=== PATIENT | female | born 1940 | race Caucasian/White ===

== ENCOUNTER 2017-05-01 14:45 | Emergency (ER) | payer MEDICARE, OTHER ==
[2017-05-01 15:10] VITALS: BP 127/60
--- NOTE | 2017-05-01 15:52 | UC ---
Skin Complaint HPI - HPI Summary HPI Summary: Pt reports that she was changing her metal bird feeder and cut the dorsal aspect of mid right forearm 3-4 days ago. pt states that she is UTD with tetanus. pt has been putting antibiotic ointment and bandage on wound. Pt is requesting that small piece of skin be uncurled and flattened on to wound. 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: Associated Signs & Symptoms: Positive: Negative - Allergy/Home Medications Allergies/Adverse Reactions: Allergies Allergy/AdvReac Type Severity Reaction Status Date / Time No Known Allergies Allergy Verified 05/01/17 15:14 Home Medications: Home Medications Atorvastatin* [Lipitor*] 10 mg PO 1700 05/01/17 [History Confirmed 05/01/17] Calcium Carbonate-Vitamin D [Calcium 600+D] 1 tab PO DAILY 05/01/17 [History Confirmed 05/01/17] Denosumab(NF) [Prolia(NF)] 60 mg SUBCUT SEE INSTRUCTIONS 05/01/17 [History Confirmed 05/01/17] Flaxseed (Linseed) [Flaxseed Oil] 1,000 mg PO DAILY 05/01/17 [History Confirmed 05/01/17] Glatiramer Acetate [Copaxone] 40 mg SUBCUT SEE INSTRUCTIONS 05/01/17 [History Confirmed 05/01/17] Omeprazole CAP* [Prilosec CAP* 20 MG] 20 mg PO DAILY 05/01/17 [History Confirmed 05/01/17] Oxcarbazepine [Oxtellar Xr] 1,200 tab PO BEDTIME 05/01/17 [History Confirmed ] Review of Systems Constitutional: Negative Skin: Other - skin tear, rigth forearm Eyes: Negative ENT: Negative Respiratory: Negative Cardiovascular: Negative Gastrointestinal: Negative Genitourinary: Negative Motor: Negative Neurovascular: Negative Musculoskeletal: Negative Neurological: Negative Psychological: Negative Is Patient Immunocompromised?: No All Other Systems Reviewed And Are Negative: Yes PMH/Surg Hx/FS Hx/Imm Hx Previously Healthy: Yes - Surgical History Surgical History: Yes Surgery Procedure, Year, and Place: T&A. TUBAL LIGATION. LAPCHOLE. ORIF RT WRIST - Family History Known Family History: Positive: Cardiac Disease - Social History Occupation: Retired Lives: With Family Alcohol Use: None Substance Use Type: None Smoking Status (MU): Never Smoked Tobacco Have You Smoked in the Last Year: No Physical Exam Triage Information Reviewed: Yes Appearance: Well-Appearing Vital Signs: Initial Vital Signs Temp 98.0 F 05/01/17 15:00 Pulse 77 05/01/17 15:00 Resp 14 05/01/17 15:00 BP 127/60 05/01/17 15:00 Pulse Ox 98 05/01/17 15:00 Vital Signs Reviewed: Yes Eye Exam: Normal Neck exam: Normal Respiratory Exam: Other Respiratory: Positive: No respiratory distress Musculoskeletal Exam: Normal Neurological Exam: Normal Psychological Exam: Normal Skin Exam: Other - skin, tear, measuring 4 cm X 1.5 cm, well healing. Course/Dx - Differential Diagnoses - Skin Complaint Differential Diagnoses: Other - healing wound, skin tear - Diagnoses Provider Diagnoses: skin tear right forearm. healing wound right forearm Discharge - Discharge Plan Condition: Stable Disposition: HOME Patient Education Materials: Skin Tear (ED), Acute Wounds (ED) Referrals: Hair Castillo DO [Primary Care Provider] - If Needed
== END 2017-05-01 15:36 | disposition home or self-care (01) ==
LOC: UCCORT 14:45
DX: S51.811A Laceration without foreign body of right forearm, initial encounter (principal); W45.8XXA Other foreign body or object entering through skin, initial encounter; Y92.9 Unspecified place or not applicable
CPT/HCPCS: 99211; G0463

== ENCOUNTER 2018-05-20 19:28 | Emergency (ER) | payer MEDICARE, OTHER ==
--- NOTE | 2018-05-20 19:50 | UC ---
Hip/Pelvis Pain - HPI Summary HPI Summary: Per medical administrative technician "fell tonight, injury to left hip, non weight bearing. " -she had severe pain w/ the fall that made her feel like she was going to pass out. she was unable to get to the phone d/t severe pain and had to wait until her got home and found her. time was < 30 mins she reports. they called dtr Jacy (Admin for [facility]) and Son in law Tonio and they transported her here. pain was lateral hip and now medial left upper thigh. unable to bear weight. + Osteoprosis hx on prolia. -pain is well controlled now. sge declines needs for pain meds. pain is only with ambulation. -family transported her here. - History Of Current Complaint Chief Complaint: UCLowerExtremity Stated Complaint: PELVIS/HIP INJ Time Seen by Provider: 05/20/18 19:33 Pain Intensity: 2 - Allergies/Home Medications Allergies/Adverse Reactions: Allergies Allergy/AdvReac Type Severity Reaction Status Date / Time No Known Allergies Allergy Verified 05/20/18 19:39 PMH/Surg Hx/FS Hx/Imm Hx Previously Healthy: Yes Endocrine History: Other - osteoporosis Other Endocrine History: osteoporisis - Surgical History Surgical History: Yes Surgery Procedure, Year, and Place: T&A. TUBAL LIGATION. LAPCHOLE. ORIF RT WRIST - Family History Known Family History: Positive: Cardiac Disease - Social History Alcohol Use: None Substance Use Type: None Smoking Status (MU): Never Smoked Tobacco Have You Smoked in the Last Year: No Review of Systems Constitutional: Negative Skin: Negative Eyes: Negative ENT: Negative Respiratory: Negative Cardiovascular: Negative Gastrointestinal: Negative Genitourinary: Negative Motor: Negative Neurovascular: Negative Musculoskeletal: Other: - see above Neurological: Negative Psychological: Negative Is Patient Immunocompromised?: No All Other Systems Reviewed And Are Negative: Yes Physical Exam Triage Information Reviewed: Yes Appearance: Well-Appearing, No Pain Distress, Well-Nourished - sitting in rollating walker. Vital Signs: Initial Vital Signs Temp 97.6 F 05/20/18 19:33 Pulse 68 05/20/18 19:33 Resp 16 05/20/18 19:33 BP 153/55 05/20/18 19:33 Pulse Ox 99 05/20/18 19:33 ENT Exam: Normal Respiratory Exam: Normal Respiratory: Positive: Lungs clear Cardiovascular Exam: Normal Musculoskeletal: Positive: Other: - not allowing pt to attempt wt bearing here. not tender laterally currently. sitting comofrtabley in rollator walker. + 2 DR/ PT pulses on left Neurological Exam: Normal Psychological Exam: Normal Hip Injury Course/Dx - Course Course Of Treatment: Left hip & pelvis: non-displace frx of medial superior pubic ramus. suspected corresponding frx in inferior pubic ramus, but not seen. -pt is non-weight bearing. agrees to transport to [place] for further management as not safe to send home non- wt bearing. Family and pt are very agreeable. APAP given for pain control - Differential Dx/Diagnosis Differential Diagnosis/HQI/PQRI: Fracture, Sprain, Strain Provider Diagnoses: non displaced medial left superior pubic ramus - Physician Notification/Consults Discussed Patient Care With: Lisandro Bucio Discharge - Sign-Out/Discharge Documenting (check all that apply): Patient Departure All imaging exams completed and their final reports reviewed: Yes - Discharge Plan Condition: Good Disposition: TRANS HIGHER LVL OF CARE FAC Referrals: Hair Castillo DO [Primary Care Provider] - - Billing Disposition and Condition Condition: GOOD Disposition: Trans Higher Lvl of Care Fac
--- NOTE | 2018-05-20 21:01 | RAD ---
EXAM: XR Left Hip With Pelvis When Performed, 2 or 3 Views EXAM DATE/TIME: Exam ordered 05/20/2018 8:19 PM CLINICAL HISTORY: 77 years old, female; Injury or trauma; Fall; Initial encounter; Blunt trauma (contusions or hematomas); Left; Hip; Injury date: 05/20/18; Injury details: Pt tripped over her vacuum shrimp cleaner landing on her lt hip, pain in pelvic and lt hip medial apsect; Additional info: Severe left hip pain, S/P fall. Unable to bear wt TECHNIQUE: Two or three views of the left hip, with pelvis when performed. COMPARISON: No relevant prior studies available. FINDINGS: Bones/joints: Nondisplaced fracture of the medial left superior pubic ramus. Degenerative change in the lower lumbar spine. No dislocation. Soft tissues: Right inguinal surgical clips. IMPRESSION: 1. Essentially nondisplaced fracture of the medial left superior pubic ramus. A corresponding fracture in the inferior pubic ramus is suspected but not seen. 2. Right inguinal surgical clips. To contact [facility] with a general question: Operations Center - [phone] For direct physician to physician contact: Physician Hotline - [phone] [facility] ([facility] Facility ID #[id number])
[2018-05-20 21:24] VITALS: BP 144/95
[2018-05-20] MEDS: Acetaminophen TAB* 325 MG PO ONE (21:27)
== END 2018-05-20 21:44 | disposition short-term general hospital (02) ==
LOC: UCCORT 19:28
DX: S32.512A Fracture of superior rim of left pubis, initial encounter for closed fracture (principal); W19.XXXA Unspecified fall, initial encounter; Y92.009 Unspecified place in unspecified non-institutional (private) residence as the place of occurrence of the external cause
CPT/HCPCS: 99213; A9270-GY; G0463

== ENCOUNTER 2018-05-20 22:10 | Inpatient (IN) | payer MEDICARE, OTHER ==
[2018-05-20] MEDS ORDERED: Ibuprofen TAB* 400 MG PO ONE (23:26)
--- NOTE | 2018-05-20 23:39 | ED ---
Lower Extremity - HPI Summary HPI Summary: The patient is a 77 y/o F presenting to [facility] with a chief complaint of falling on her left hip tonight. She was walking in her living room when she had forgotten that she placed her vacuum there, and she tripped over it, causing her to fall onto her left side, causing swelling in the hip. She hit her left hip and shoulder, but did not hit her head or have any LOC. She was unable to get up so she crawled over to a chair, and her came home, who called their daughter to take the patient to urgent care. At urgent care, she had an XR taken, which showed that there was no fracture to the hip, but there was a fracture in the anterior of the pelvic bone, as well and one in the posterior, as read by Dr. Welch. She had Tylenol at urgent care, which she states has relieved her pain completely, while lying down. She is not able to bear weight on the left leg due to the pain in her pelvic area. She does not take any blood thinners. - History of Current Complaint Chief Complaint: EDHipPelvisInjury Stated Complaint: CC TRANSFER/PELVIS INJURY Time Seen by Provider: 05/20/18 22:49 Hx Obtained From: Patient Mechanism Of Injury: Fall From A Standing Position - tripped over vacuum Onset of Pain: Hours Onset/Duration: Still Present Severity Initially: Severe Severity Currently: Mild Pain Intensity: 0 Pain Scale Used: 0-10 Numeric Timing: Constant, Lasting Hours Location: Is Discrete @ - left hip/pelvis Character Of Pain: Aching Aggravating Factor(s): Standing, Ambulation, Weight Bearing Alleviating Factor(s): Rest Able to Bear Weight: No - pain with weight bearing - Allergies/Home Medications Allergies/Adverse Reactions: Allergies Allergy/AdvReac Type Severity Reaction Status Date / Time No Known Allergies Allergy Verified 05/20/18 19:39 Home Medications: Home Medications Vitamin D3 2,000 i.u. PO DAILY 05/20/18 [History Confirmed 05/20/18] PMH/Surg Hx/FS Hx/Imm Hx Endocrine/Hematology History: Denies: Hx Diabetes Cardiovascular History: Denies: Hx Hypertension, Hx Pacemaker/ICD Respiratory History: Denies: Hx Asthma History: Denies: Hx Renal Disease Sensory History: Denies: Hx Hearing Aid Psychiatric History: Denies: Hx Panic Disorder - Surgical History Surgery Procedure, Year, and Place: T&A. TUBAL LIGATION. LAPCHOLE. ORIF RT WRIST Infectious Disease History: No Infectious Disease History: Denies: Traveled Outside the [place] in Last 30 Days - Family History Known Family History: Positive: Cardiac Disease - Social History Alcohol Use: None Substance Use Type: Reports: None Smoking Status (MU): Never Smoked Tobacco Have You Smoked in the Last Year: No Review of Systems Positive: Other - pain and swelling in left hip Neurological: Other - NEGATIVE: LOC All Other Systems Reviewed And Are Negative: Yes Physical Exam - Summary Physical Exam Summary: Appearance: Well-appearing, Well-nourished, lying in bed comfortably Skin: Warm, dry, no obvious rash Eyes: sclera anicteric, no conjunctival pallor ENT: mucous membranes moist, pharynx appears normal Neck: Supple, nontender Respiratory: Clear to auscultation, no signs of respiratory distress Cardiovascular: Normal S1, S2. No murmurs. Normal distal pulses in tibial and radial bilaterally. Abdomen: Soft, nontender, normal active bowel sounds present Musculoskeletal: Normal, Strength/ROM intact Neurological: A&Ox3, awake and alert, mentation is normal, speech is fluent and appropriate Psychiatric: affect is normal, does not appear anxious or depressed Triage Information Reviewed: Yes Vital Signs On Initial Exam: Initial Vitals Pulse Pulse Ox 68 97 05/20/18 22:29 05/20/18 22:29 Vital Signs Reviewed: Yes Diagnostics - Vital Signs Vital Signs Temp Pulse Resp BP Pulse Ox 05/20/18 22:30 97.9 F 69 16 148/78 97 05/20/18 22:29 68 97 - Laboratory Result Diagrams: 05/21/18 00:04 05/21/18 00:04 Lab Statement: Any lab studies that have been ordered have been reviewed, and results considered in the medical decision making process. - EKG 00:59 Cardiac Rate: NL EKG Rhythm: Sinus Rhythm EKG Interpretation: P waves, QRS complex, and T waves and intervals nml. No ischemic changes. Lower Extremity Course/Dx - Diagnoses Provider Diagnoses: Pelvic fracture - Physician Notifications Discussed Care Of Patient With: Marquis Francis - Hospitalist Time Discussed With Above Provider: 00:30 Instructed by Provider To: Admit As Inpatient - Dr. Francis accepts the patient for further care and management of symptoms. Discharge - Sign-Out/Discharge Documenting (check all that apply): Patient Departure - Patient will be admitted to [facility] for further care. - Discharge Plan Condition: Fair Disposition: ADMITTED TO [facility] - Billing Disposition and Condition Condition: FAIR Disposition: Admitted to [facility] - Attestation Statements Document Initiated by Pepitoibkinjal: Yes Documenting Scribe: Netta Hernandez Provider For Whom Petros is Documenting (Include Credential): Dr. Lisandro Taylor MD Scribe Attestation: Netta Vega scribed for Dr. Lisandro Taylor MD on 05/21/18 at 0309. Scribe Documentation Reviewed: Yes Provider Attestation: The documentation as recorded by the Netta goodman accurately reflects the service I personally performed and the decisions made by me, Dr. Lisandro Taylor MD
[2018-05-20] MEDS ORDERED: oxyCODONE TAB* 5 MG TAB PO ONE (23:53)
[2018-05-21 00:17] LABS: ABS Basophils 0.1 10^3/ul (0-0.2); ABS Eosinophils 0 10^3/ul (0-0.6); ABS Lymphocytes 1.5 10^3/ul (1.0-4.8); ABS Monocytes 0.8 10^3/ul (0-0.8); ABS Nucleated RBC 0 10^3/ul; Eosinophil % 0.4 % (0-6); Hematocrit 36 % (35-47); Lymphocyte % 13.4 % (25-47); Mean Corpuscular HGB Conc 34 g/dl (31-36); Mean Corpuscular Hemoglobin 30 pg (27-31); Mean Corpuscular Volume 90 fL (80-97); Mean Platelet Volume 8.1 um3 (7.4-10.4); Nucleated Red Blood Cells % 0.1; Platelet Count 275 10^3/ul (150-450); Red Blood Count 3.95 10^6/ul (4.00-5.40); Red Cell Distribution Width 13 % (10.5-15); White Blood Count 11.5 10^3/ul (3.5-10.8)
[2018-05-21 04:09] LABS: Urine Appearance Clear; Urine Blood Negative (Negative); Urine Color Yellow; Urine Ketones Trace (Negative); Urine Protein Negative (Negative); Urine Red Blood Cell Trace(0-2/hpf) (Absent); Urine Specific Gravity 1.025 (1.010-1.030); Urine Urobilinogen Negative (Negative); Urine White Blood Cell 3+(>20/hpf) (Absent)
[2018-05-21 04:33] LABS: ABS Basophils 0.1 10^3/ul (0-0.2); ABS Eosinophils 0.1 10^3/ul (0-0.6); ABS Lymphocytes 1.7 10^3/ul (1.0-4.8); ABS Monocytes 0.8 10^3/ul (0-0.8); ABS Nucleated RBC 0 10^3/ul; Eosinophil % 0.9 % (0-6); Hematocrit 33 % (35-47); Hemoglobin 11.5 g/dl (12.0-16.0); Lymphocyte % 22.7 % (25-47); Mean Corpuscular HGB Conc 35 g/dl (31-36); Mean Corpuscular Hemoglobin 31 pg (27-31); Mean Corpuscular Volume 90 fL (80-97); Mean Platelet Volume 7.8 um3 (7.4-10.4); Nucleated Red Blood Cells % 0; Platelet Count 245 10^3/ul (150-450); Red Blood Count 3.68 10^6/ul (4.00-5.40); Red Cell Distribution Width 13 % (10.5-15); White Blood Count 7.7 10^3/ul (3.5-10.8)
[2018-05-21 04:50] LABS: EGFR Non-African American 98.8 (>60)
[2018-05-21] MEDS: Heparin VIAL(*) 5000 UNITS/ML VIAL (FIVE THOUSAND) SUBCUT SCH ×3 (06:15→20:56)
[2018-05-21] MEDS: Omeprazole CAP* 20 MG PO SCH (07:58)
[2018-05-21] MEDS: Calcium/Vitamin D TAB 250/125* TAB PO SCH (07:58)
[2018-05-21] MEDS: Cholecalciferol TAB* 1000 UNITS PO SCH (07:58)
[2018-05-21] MEDS: Acetaminophen TAB* 325 MG PO PRN ×3 (10:58→20:33)
--- NOTE | 2018-05-21 11:38 | PN ---
Subjective Date of Service: 05/21/18 Interval History: Patient seen and examined at bedside. Denies fever, chills, shortness of breath , chest discomfort, N/V/D. Pt states that her pain is controlled while in the bed or chair. She was able to ambulate to the bathroom with a walker and PT. She states that the pain is increased with walking, but she is able to manage ambulation. Pt states that she has been on oxycarbazepime for awhile and it is not a new medication. Family History: Unchanged from Admission Social History: Unchanged from Admission Past Medical History: Unchanged from Admission Objective Active Medications: Acetaminophen (Tylenol Tab*) 650 mg PO Q4H PRN Reason: FEVER/HEADACHE Atorvastatin Calcium (Lipitor*) 10 mg PO 1700 BRIDGET Calcium/Vitamin D (Oscal D Tab 250/125*) 2 tab PO DAILY BR[facility]GET Cholecalciferol (Vitamin D Tab*) 2,000 units PO DAILY BR[facility]GET Heparin Sodium (Porcine) (Heparin Vial(*)) 5,000 units SUBCUT Q8HR BRIDGET (Glatiramer Acetate ([Copaxone] 40 Mg)) 40 mg SUBCUT MoWeFr@0900 BRIDGET Non-Formulary Medication (Oxcarbazepine [Oxtellar Xr]) 1 tab PO BEDTIME BRIDGET Omeprazole (Prilosec Cap*) 20 mg PO DAILY BRIDGET Oxycodone HCl (Roxycodone Tab*) 5 mg PO Q4H PRN Reason: PAIN - MODERATE Vital Signs - 8 hr 05/21/18 05/21/18 07:09 07:58 Temperature 98.1 F Pulse Rate 61 Respiratory 16 16 Rate Blood Pressure 145/57 (mmHg) O2 Sat by Pulse 100 Oximetry Oxygen Devices in Use Now: None Appearance: NAD, sitting up in a chair Ears/Nose/Mouth/Throat: Mucous Membranes Moist Respiratory: Symmetrical Chest Expansion and Respiratory Effort, Clear to Auscultation Cardiovascular: NL Sounds; No Murmurs; No JVD, RRR Abdominal: NL Sounds; No Tenderness; No Distention Extremities: No Edema Skin: No Rash or Ulcers Neurological: Alert and Oriented x 3, NL Muscle Strength and Tone Lines/Tubes/Other Access: Clean, Dry and Intact Peripheral IV - site benign Nutrition: Taking PO's Result Diagrams: 05/21/18 04:26 05/21/18 04:26 Assess/Plan/Problems-Billing Assessment: Ms. Astorga is a 77 yo female with PMH significant for osteoporosis, HLD, MS , GERD, and trigeminal neuralgia who presented to the emergency room after a fall resulting in left hip pain, she was found to have a pelvic fracture. - Patient Problems (1) Pelvic fracture Code(s): S32.9XXA - FRACTURE OF UNSP PARTS OF LUMBOSACRAL SPINE AND PELVIS, INIT SNOMED Code(s): 75148256 Comment: - Pain is controlled - Weight bearing as tolerated - HH stable - Continue PT - Continue pain management and bowel regimen (2) Hyponatremia Code(s): E87.1 - HYPO-OSMOLALITY AND HYPONATREMIA SNOMED Code(s): 62368526 Comment: - Patient appears euvolemic - Will check serum osm, urine osm and urine sodium - Pt is on oxycarbazepine, this may be contributing to the hyponatremia - Will recheck labs in the AM (3) HLD (hyperlipidemia) Code(s): E78.5 - HYPERLIPIDEMIA, UNSPECIFIED SNOMED Code(s): 41953860 Comment: - Continue statin (4) Multiple sclerosis Code(s): G35 - MULTIPLE SCLEROSIS SNOMED Code(s): 98879932 Comment: - Continue Glatiromer (5) Trigeminal neuralgia Code(s): G50.0 - TRIGEMINAL NEURALGIA SNOMED Code(s): 51201056 Comment: - Continue Oxcarbazepine (6) GERD (gastroesophageal reflux disease) Code(s): K21.9 - GASTRO-ESOPHAGEAL REFLUX DISEASE WITHOUT ESOPHAGITIS SNOMED Code(s): 182495873 Comment: - Continue omeprazole (7) Osteoporosis Code(s): M81.0 - AGE-RELATED OSTEOPOROSIS W/O CURRENT PATHOLOGICAL FRACTURE SNOMED Code(s): 52508580 Comment: - Continue Vit d and calcium (8) DVT prophylaxis Code(s): NVO6380 - SNOMED Code(s): 909800179 Comment: - SQ heparin and SCDs (9) Full code status Code(s): Z78.9 - OTHER SPECIFIED HEALTH STATUS SNOMED Code(s): 697140881 Status and Disposition: Inpatient. Discharge to home when medically stable, suspect she will be ready in the morning.
[2018-05-21] MEDS ORDERED: Senna TAB PO PRN (11:42)
[2018-05-21] MEDS ORDERED: Docusate CAP* 100 MG PO PRN (11:42)
[2018-05-21] MEDS ORDERED: Magnesium Hydroxide LIQ* 30 ML UDC PO PRN (11:42)
--- NOTE | 2018-05-21 16:00 | HP ---
CC: Dr. Hair Castillo, [place] ADMISSION HISTORY AND PHYSICAL: DATE OF ADMISSION: 05/21/18 CHIEF COMPLAINT: Fall. HISTORY OF PRESENT ILLNESS: Ms. Astorga is a 77-year-old woman with osteoporosis and otherwise in good health, who tripped over her vacuum strainer cleaner this evening at her home and landed on her left hip . The patient also bruised her left shoulder. She developed pain with weightbearing of her left hip and was brought to the emergency department by ambulance. The patient denies any significant injury to her left shoulder. She does have a history of right wrist fracture in 2008 after a fall in [place]. The patient denies any syncope or head injury. She just had a mechanical fall. PAST MEDICAL HISTORY: Includes osteoporosis, hyperlipidemia, trigeminal neuralgia, multiple sclerosi s, and GERD. PAST SURGICAL HISTORY: Tonsillectomy, right wrist ORIF, cholecystectomy, and bilateral cataract kelly dayana. MEDICATIONS: On admission: 1. Lipitor 10 mg p.o. q.h.s. 2. Calcium 1 tab p.o. daily. 3. Prolia 60 mg subcutaneous every 6 months. 4. Flax seed oil 1000 mg daily. 5. Copaxone 40 mg subcutaneous 3 times a week. 6. Omeprazole 20 mg p.o. q. day. 7. Oxcarbazepine 1200 units p.o. q.p.m. 8. Vitamin D3 2000 International Units p.o. q. day. ALLERGIES: None. FAMILY HISTORY: Notable for mother of bladder cancer; father of lung cancer, father also h ad stroke in the past. 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 She is . She has 3 chil dren. She does not have a healthcare proxy, but her children would help her with decision making. S ocial history also includes quit tobacco in 1987. No alcohol or drug use. REVIEW OF SYSTEMS: The patient denies any fevers, weight loss, or anorexia. The patient denies any chest pain or palpitations. The patient denies any shortness of breath or cough. Remainder of 14-po int review of systems is negative other than mentioned in the HPI. PHYSICAL EXAMINATION GENERAL: She is alert, in no acute distress. VITAL SIGNS: Temperature is 36.6, pulse 64, respirations 16, blood pressure is 132/81, oxygen satura tion 98%. HEENT: Head is normocephalic, atraumatic. Sclerae anicteric. Pupils are equal, round, and reactive to light and accommodation. Oropharynx is moist. No lesions. NECK: No JVD. No carotid bruits. No thyromegaly. LUNGS: Clear to auscultation and percussion bilaterally. HEART: Regular rate and rhythm without murmurs, rubs, or gallops. ABDOMEN: Soft, nontender, positive bowel sounds. No hepatosplenomegaly. EXTREMITIES: Left hip, pain with range of motion, but no deformity. Dorsalis pedis pulses are 2+ bi laterally. NEUROLOGIC: She is moving all 4 extremities. Good power. She is alert and oriented x3. DIAGNOSTIC STUDIES/LAB DATA: Sodium 132, potassium 4.0, chloride 97, bicarb 27, BUN 20, creatinine 0.64, glucose 113, calcium 9.0. White count 11.5, hemoglobin 12.0, hematocrit 36%, platelets are 275 . EKG shows normal sinus rhythm, normal axis, early transition, possible lead placement issue. Pelvis x-ray taken at [facility] shows she has a nondisplaced fracture in the left supe rior pubic ramus and corresponding inferior pubic ramus fracture suspected but not seen. ASSESSMENT AND PLAN: A 77-year-old woman with osteoporosis, now with a pelvic fracture after a mecha nical fall. The patient admitted for pain control and to have physical therapy to work with ambulati on with a walker. 1. The patient has osteoporosis and has had a fragility fracture, on Prolia as well as calcium and v itamin D. She may need anabolic agent such as Tymlos or Forteo for 2 years and then go back to Proli a after this; this can be decided as an outpatient. 2. DVT prophylaxis will be with sequential compression devices and heparin as she is a high risk giv en her fracture and her age. 3. Code status is full. [id number]/CPS #: [id number]
[2018-05-21] MEDS: Atorvastatin* 10 MG TAB PO SCH (17:34)
[2018-05-21] MEDS: OXCARBAZEPINE 600 MG PO SCH (20:55)
[2018-05-22] MEDS: oxyCODONE TAB* 5 MG TAB PO PRN ×3 (00:45→17:12)
[2018-05-22] MEDS: Heparin VIAL(*) 5000 UNITS/ML VIAL (FIVE THOUSAND) SUBCUT SCH ×3 (05:42→20:55)
[2018-05-22 05:49] LABS: Hematocrit 34 % (35-47); Hemoglobin 11.8 g/dl (12.0-16.0)
[2018-05-22] MEDS: Calcium/Vitamin D TAB 250/125* TAB PO SCH (08:03)
[2018-05-22] MEDS: Omeprazole CAP* 20 MG PO SCH (08:03)
[2018-05-22] MEDS: Cholecalciferol TAB* 1000 UNITS PO SCH (08:03)
[2018-05-22] MEDS: Acetaminophen TAB* 325 MG PO PRN ×4 (09:50→20:53)
--- NOTE | 2018-05-22 11:38 | PN ---
Subjective Date of Service: 05/22/18 Interval History: Pt is feeling not quite as good today as she did yesterday. She states she had a harder time walking today. 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 She also was quite nauseated this AM and vomited 3x. Her pain is controlled not but prior to vomiting the patient was having more pain. Family History: Unchanged from Admission Social History: Unchanged from Admission Past Medical History: Unchanged from Admission Objective Active Medications: Acetaminophen (Tylenol Tab*) 650 mg PO Q4H PRN PRN Reason: FEVER/HEADACHE Last Admin: 05/22/18 09:50 Dose: 650 mg Atorvastatin Calcium (Lipitor*) 10 mg PO 1700 [facility] Last Admin: 05/21/18 17:34 Dose: 10 mg Calcium/Vitamin D (Oscal D Tab 250/125*) 2 tab PO DAILY [facility] Last Admin: 05/22/18 08:03 Dose: 2 tab Cholecalciferol (Vitamin D Tab*) 2,000 units PO DAILY [facility] Last Admin: 05/22/18 08:03 Dose: 2,000 units Docusate Sodium (Colace Cap*) 100 mg PO BID PRN PRN Reason: CONSTIPATION Heparin Sodium (Porcine) (Heparin Vial(*)) 5,000 units SUBCUT Q8HR [facility] Last Admin: 05/22/18 05:42 Dose: 5,000 units Magnesium Hydroxide (Milk Of Magnesia Liq*) 30 ml PO BID PRN PRN Reason: CONSTIPATION (Glatiramer Acetate ([Copaxone] 40 Mg)) 40 mg SUBCUT MoWeFr@0900 [facility] Oxcarbazepine [ (Oxtellar Xr] 600 Mg) 2 tab PO BEDTIME [facility] Last Admin: 05/21/18 20:55 Dose: 2 tab Omeprazole (Prilosec Cap*) 20 mg PO DAILY [facility] Last Admin: 05/22/18 08:03 Dose: 20 mg Oxycodone HCl (Roxycodone Tab*) 5 mg PO Q4H PRN PRN Reason: PAIN - MODERATE Last Admin: 05/22/18 00:45 Dose: 5 mg Senna (Senokot Tab*) 1 tab PO BEDTIME PRN PRN Reason: CONSTIPATION Vital Signs - 8 hr 05/22/18 05/22/18 05/22/18 04:15 07:09 08:00 Temperature 97.6 F 97.7 F Pulse Rate 67 61 Respiratory 16 17 16 Rate Blood Pressure 127/54 123/55 (mmHg) O2 Sat by Pulse 100 98 Oximetry Oxygen Devices in Use Now: None Appearance: Elderly female sitting up in bed, NAD Eyes: No Scleral Icterus Ears/Nose/Mouth/Throat: Mucous Membranes Moist Respiratory: Symmetrical Chest Expansion and Respiratory Effort, Clear to Auscultation Cardiovascular: NL Sounds; No Murmurs; No JVD, RRR, No Edema Abdominal: NL Sounds; No Tenderness; No Distention Extremities: No Clubbing, Cyanosis Skin: No Nodules or Sclerosis Neurological: Alert and Oriented x 3, NL Muscle Strength and Tone - LE Result Diagrams: 05/22/18 05:37 05/22/18 05:37 Microbiology and Other Data: Microbiology 05/21/18 03:51 Urine Culture - Final Urine No Growth (<1,000 CFU/mL) Assess/Plan/Problems-Billing Ms. Astorga is a 77 yo female with PMHx significant for osteoporosis, HLD, MS , GERD, and trigeminal neuralgia who presented to the emergency room after a fall resulting in left hip pain, she was found to have a pelvic fracture. - Patient Problems (1) Pelvic fracture Current Visit: Yes Status: Acute Code(s): S32.9XXA - FRACTURE OF UNSP PARTS OF LUMBOSACRAL SPINE AND PELVIS, INIT SNOMED Code(s): 80743490 Comment: Pain is generally controlled with tylenol alone. She thinks she doesn't need the oxycodone but she did take a dose this AM. She has been working with PT and thinks she will be able to manage at home but today with the increased difficulty she would like another night to have assistance and work with PT again tomorrow before going home. Continue tylenol and prn oxycodone (pt using very sparingly). (2) Hyponatremia Current Visit: Yes Status: Acute Code(s): E87.1 - HYPO-OSMOLALITY AND HYPONATREMIA SNOMED Code(s): 07771984 Comment: Sodium is stable today. Will get follow up level tomorrow. 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 ? secondary to pain vs oxcarbazepine. As Na is only mildly low will not fluid restrict at this time. (3) Multiple sclerosis Current Visit: Yes Status: Chronic Code(s): G35 - MULTIPLE SCLEROSIS SNOMED Code(s): 22044542 Comment: Continue Glatiromer. (4) HLD (hyperlipidemia) Current Visit: Yes Status: Chronic Code(s): E78.5 - HYPERLIPIDEMIA, UNSPECIFIED SNOMED Code(s): 93399106 Comment: Continue statin. (5) GERD (gastroesophageal reflux disease) Current Visit: Yes Status: Chronic Code(s): K21.9 - GASTRO-ESOPHAGEAL REFLUX DISEASE WITHOUT ESOPHAGITIS SNOMED Code(s): 415582463 Comment: Continue omeprazole. (6) DVT prophylaxis Current Visit: Yes Status: Acute Code(s): TFD3282 - SNOMED Code(s): 509993660 Comment: SQ heparin and SCDs (7) Full code status Current Visit: Yes Status: Acute Code(s): Z78.9 - OTHER SPECIFIED HEALTH STATUS SNOMED Code(s): 978870337 Status and Disposition: Inpatient. Discharge to home when medically stable, suspect she will be ready in the morning.
[2018-05-22] MEDS: Atorvastatin* 10 MG TAB PO SCH (17:10)
[2018-05-22] MEDS ORDERED: Ondansetron INJ* 2 MG/ML VIAL IV PRN (18:43)
[2018-05-22] MEDS: OXCARBAZEPINE 600 MG PO SCH (20:53)
[2018-05-23] MEDS: Acetaminophen TAB* 325 MG PO PRN ×4 (00:51→15:00)
[2018-05-23] MEDS: Heparin VIAL(*) 5000 UNITS/ML VIAL (FIVE THOUSAND) SUBCUT SCH ×2 (06:04→15:01)
[2018-05-23 07:38] VITALS: BP 140/59
[2018-05-23] MEDS: Cholecalciferol TAB* 1000 UNITS PO SCH (08:53)
[2018-05-23] MEDS: Calcium/Vitamin D TAB 250/125* TAB PO SCH (08:53)
[2018-05-23] MEDS: Omeprazole CAP* 20 MG PO SCH (08:53)
[2018-05-23] MEDS ORDERED: GLATIRAMER ACETATE 40 MG SUBCUT SCH (09:00)
[2018-05-23] MEDS: oxyCODONE TAB* 5 MG TAB PO PRN ×2 (10:30→16:46)
[2018-05-23] MEDS: Atorvastatin* 10 MG TAB PO SCH (16:35)
--- NOTE | 2018-05-23 23:20 | DS ---
CC: Hair Castillo, DO * DISCHARGE SUMMARY: DATE OF ADMISSION: 05/21/18 DATE OF DISCHARGE: 05/23/18 PRINCIPAL DISCHARGE DIAGNOSIS: Pubic ramus fracture. SECONDARY DISCHARGE DIAGNOSES: 1. Osteoporosis. 2. Multiple sclerosis. 3. History of trigeminal neuralgia. 4. Hyperlipidemia. PHYSICAL EXAM AT THE TIME OF DISCHARGE: Temp 97.0, heart rate 61, respiratory rate 14, pulse ox 99% on room air, blood pressure 140/59. General: Alert, well appearing female, sitting up in the chair in no distress. HEENT: Pupils equal round and reactive to light. Oral mucosa is moist. Neck: No JVP. Chest : Regular rate and rhythm. No murmurs. PMI: No displaced lung angeles bilaterally. Abdomen: Soft, nontender, nondistended. Extremities: No edema. No rashes. Ecchymosis noted over left hip and she has decreased strengths in left hip flexion and full strength in right hip flexion and full strength in knee extension and flexion. HOSPITAL COURSE BY PROBLEM: 1. Pubic ramus fracture. Ms. Astorga was admitted for pain control and did well on Tylenol and oxycodone and by the day of discharge was requiring no oxycodone. She worked with physical therapy and by the day of discharge was able to walk independently. She lives at home with her , who works 12 to 5, but otherwise is home with her and their bedroom is on the first floor. Physical therapy felt that she was safe to be discharged to home with home physical therapy, so this has been arranged with case management. I have discontinued her PPI given her osteoporosis and fractures. She is to follow up with her primary care physician. 2. Hyponatremia. This was noted to be chronic and now thought to be contributing to her falls and possibly secondary to oxcarbazepine. 3. Fall. Ms. Astorga clearly described a mechanical fall. She tripped over the vacuum cord. She had no loss of consciousness, palpitations, chest pain or shortness of breath that preceded at the fall. 3. Multiple sclerosis. She was continued to glatiramer acetate. DISCHARGE INSTRUCTIONS: Ms. Guerra is instructed to return to the emergency department should she develop worsening pain or inability to ambulate or develop any new symptoms she was instructed to follow up with primary care physician within 1 week of discharge who was Dr. Castillo in [place]. Please do not hesitate to contact me with any questions or concerns about Ms. Astorga's admission and discharge. [id number] #: [id number] JUSTYNA
== END 2018-05-23 17:00 | disposition home health service (06) | DRG 536 ==
LOC: ED 22:10 → SSU 05-21 01:23
PROVIDERS: ADMIT Internal Medicine; ATTEND Internal Medicine
DX: S32.592A Other specified fracture of left pubis, initial encounter for closed fracture (principal); E87.1 Hypo-osmolality and hyponatremia; S40.012A Contusion of left shoulder, initial encounter; M81.0 Age-related osteoporosis without current pathological fracture; E78.5 Hyperlipidemia, unspecified; R11.2 Nausea with vomiting, unspecified; G35 Multiple sclerosis; K21.9 Gastro-esophageal reflux disease without esophagitis; G50.0 Trigeminal neuralgia; Z98.42 Cataract extraction status, left eye; W01.0XXA Fall on same level from slipping, tripping and stumbling without subsequent striking against object, initial encounter; Y92.009 Unspecified place in unspecified non-institutional (private) residence as the place of occurrence of the external cause; Z90.49 Acquired absence of other specified parts of digestive tract; Z98.41 Cataract extraction status, right eye; Z80.52 Family history of malignant neoplasm of bladder; Z80.1 Family history of malignant neoplasm of trachea, bronchus and lung; Z82.3 Family history of stroke; Z87.891 Personal history of nicotine dependence; Z98.51 Tubal ligation status; Z82.49 Family history of ischemic heart disease and other diseases of the circulatory system
CPT/HCPCS: 36415; 80048; 81003; 81015; 83930; 83935; 84300; 85014; 85018; 85025; 87086; 93005; 99213; 99283; A9270-GY; G0463; G8978-GP-CJ; G8979-GP-CI; G8980-GP-CJ; J1644; J2405

== ENCOUNTER 2018-06-13 13:52 | Emergency (ER) | payer MEDICARE, OTHER ==
--- OUTSIDE RECORDS SUMMARY | 2018-06-13 14:25 | XMS REPORT ---
:1940 External Reference #:[id number] Author Organization [facility] Address [address] [address] Phone [phone] Care Team Providers Name Role Phone Hair Castillo DO Primary Care Physician Unavailable Payers Type Date Identification Numbers Payment Provider Subscriber Medicare Primary Effective: Policy Number: Medicare Sandra Harrington 2007 [id number] PayID: [id number] [address] [place] [address] [facility] Part B Effective: Policy Number: Connie Astorga 2014 [id number] Benefit SLNS Group Number: [id number] [address] [address] [id number] [place] [address] Problems Date Description Provider Status Onset: 11/06/2004 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 Onset: 11/06/2004 Multiple sclerosis Evens Solares MD Active Onset: 03/28/2007 Cervical syndrome Evens Solares MD Active Onset: 09/20/2013 Senile osteoporosis Hair Castillo DO Active Onset: 12/02/2011 Hemangioma Jerry Reed MD Active Onset: 09/18/2009 Osteoporosis Jerry Reed MD Active Onset: 09/18/2009 Carotid artery occlusion Jerry Reed MD Active Onset: 09/18/2009 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 Onset: 02/25/2007 Mixed hyperlipidemia Jerry Reed MD Active Family History Date Family Member(s) Problem(s) Comments Father due to Unknown Causes () Mother due to Cancer () Children 3 Siblings 3 First Sister Cancer, Breast Social History Type Date Description Comments Marital Status Lives With Spouse 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 Cigarette Use Former Cigarette Smoker ETOH Use Occasionally consumes liquor Smoking Patient is a former smoker Daily Caffeine Consumes Coffee And Chocolate Allergies, Adverse Reactions, Alerts Date Description Reaction Status Severity Comments 11/06/2004 NKDA active Medications Medication Date Status Form Strength Qnty SIG Indications Ordering Provider Ibuprofen 200 10/10/ Active Tablets 200mg 3 tabs by Unknown 2018 mouth bid Acetaminophen 10/10/ Active Tablets 500mg 1-2 tabs q6 Unknown 2018 hrs prn MDD 3000MG Prolia / Active Solution 60mg/ml q 6 months Unknown 0000 Flaxseed Oil / Active Capsules 1000 mg qd Unknown 0000 Calcium / Active Tablets 1 by mouth Unknown 0000 every day Vitamin D3 / Active Tablets 2000 units Unknown Complete 0000 qd Copaxone / Active Soln 40mg/ml 1 dose 3x Unknown 0000 Prefill weekly Syringe Oxtellar XR / Active Tablets ER 600mg 2 po qhs Unknown 0000 24HR Omeprazole / Active Capsules 20mg 90cap Take One Castillo, 0000 DR s Capsule By Hair, Mouth Every DO Day Oxycodone HCL 05/25/ Hx Capsules 5mg 1 tab every Unknown 2018 - 4 hours prn 1017/ Max dose 4 2017 Atorvastatin 02/08/ Hx Tablets 10mg 90tab Take One Castillo, Calcium 2014 - Tablet By Hair 05/25/ Mouth Every DO 2018 Day Simvastatin 12/01/ Hx Tablets 20mg 90tab 1 by mouth Castillo, 2014 - s every day Hair 02/08/ DO 2014 Copaxone 08/17/ Hx Kit 20mg/ml 90uni 1 sq Parminder 2015 - ts injection Castro Paredes, 05/17/ daily 2014 prefilled syringes [facility] Vitamin D 09/19/ Hx Liquid 400Unit/M 2 qd Violet Rede 2012 - L Jerry, 2014 Oxcarbazepine 09/28/ Hx Tablets 600mg 180ta 1 pill po Parminder, 2011 - bs bid Castro Paredes, 2015 Gabapentin 11/10/ Hx Capsules 300mg 180ca Take One Jonathan, 2010 - ps Capsule By Hair, 01/20/ Mouth Twice DO 2017 A Day Simvastatin 09/17/ Hx Tablets 10mg 90tab take 1 Jonathan, 2009 - s tablet by Hair, 12/01/ mouth every DO 2014 day Gralise 09/10/ Hx Tablets 600mg 2 hs Derek, 2008 - Jerry, 2014 Lidoderm 06/21/ Hx Patches 5% 30uni apply up to Parminder, 2007 - ts three Castro Paredes, 10/15/ patches to 2008 painful area for 12 hours. 12 hours on and 12 hours off. Dilantin 06/11/ Hx Capsules 100mg 90cap iii po qhs Parminder 2007 - s Castro Paredes, 2007 Trileptal 06/07/ Hx Tablets 600mg 120ta ii po bid Parminder, 2007 - bs Castro Paredes, 2011 Cervical Spine for Parminder, X-Ray 2007 - cervicalgia Castro Paredes, 2008 Carotid Hx numbness and Parminder, Ultrasound 2007 - tingling Castro Paredes, 07/19/ 782.0 MD 2007 Evista 02/23/ Hx [place] 2005 - ting, 11/29/ Jessica, 2015 RPA-C Fosamax 02/23/ Hx [place] 2005 - ting, 12/05/ Jessica, 2013 RPA-C Copaxone 11/12/ Hx 20mg 90uni i sq Parminder, 2005 - ts injection Castro Paredes, 08/17/ daily 2014 30 prefilled syringes Copaxone 08/26/ Hx 20mg 32Via 1 sq Parminder, 2005 - ls injection Castro Paredes, daily 2007 Neurontin 08/26/ Hx Parminder, 2005 - Castro Paredes, MD 2007 Neurontin 08/26/ Hx 300mg 540un ii po tid Parminder, 2005 - its Castro Paredes, 2010 Trileptal Hx 150mg 180un i po bid Parminder, 2005 - its Castro Paredes, 2010 MRI Brain And MRI Brain Parminder, C-Spine 2005 - And C- Spine Castro Paredes, 2007 DX MS And Trigeminal Neuralgia 340 And 350.1 Garlic / Hx Capsules 450mg 1 po qd Unknown 0000 - 2014 Trileptal / Hx Tablets 600mg 1 po daily Unknown 0000 - 2016 Immunizations CPT Code Status Date Vaccine Lot # [id number] Given 01/18/2018 Pneumococcal 23 Immunization Adult Or Immunosuppressed Patient Q2039 Given 05/11/2017 Flu Vaccine NOS 15709 Given 09/25/2016 Prevnar 13 Pneumococal Conjugate Vaccine 55912 Given 05/29/2016 Fluzone Highdose Age 65 And Over Preservative & Antibiotic Free 16764 Given 08/26/2015 Prevnar 13 Pneumococal Conjugate Vaccine 41695 Given 10/29/2011 Tdap (Adacel) Ages 7 And Above Only 93715 Given 10/29/2011 Tdap (Adacel) Ages 7 And Above Only 54656 Given 04/15/2009 Afluria Or Fluvirin Flu Vac Intramuscular 19507 Given 05/19/2007 Afluria Or Fluvirin Flu Vac Intramuscular Vital Signs Date Vital Result Comment 06/01/2018 Weight 145.00 lb Heart Rate 72 /min BP Systolic 142 mmHg BP Diastolic 78 mmHg Respiratory Rate 18 /min 12/16/2017 Weight 142.00 lb Heart Rate 88 /min BP Systolic 118 mmHg BP Diastolic 60 mmHg Respiratory Rate 17 /min Height 65.5 inches 5'5.50" BMI (Body Mass Index) 23.3 kg/m2 01/21/2017 Weight 149.00 lb Heart Rate 72 /min BP Systolic 136 mmHg BP Diastolic 78 mmHg Respiratory Rate 18 /min Height 65.5 inches 5'5.50" (11/2015) O2 % BldC Oximetry 97 % BMI (Body Mass Index) 24.4 kg/m2 06/01/2016 Weight 139.00 lb Heart Rate 68 /min BP Systolic 132 mmHg BP Diastolic 78 mmHg Respiratory Rate 18 /min Height 65.5 inches 5'5.50" (11/2015) BMI (Body Mass Index) 22.8 kg/m2 12/12/2015 Weight 154.00 lb Heart Rate 66 /min BP Systolic 118 mmHg BP Diastolic 60 mmHg Respiratory Rate 18 /min Height 65.5 inches 5'5.50" (11/2015) BMI (Body Mass Index) 25.2 kg/m2 05/17/2015 Weight 153.00 lb Heart Rate 70 /min BP Systolic 136 mmHg BP Diastolic 60 mmHg Respiratory Rate 18 /min Height 65.5 inches 5'5.50" (11/2014) BMI (Body Mass Index) 25.1 kg/m2 11/29/2014 Body Temperature 97.8 F Weight 149.00 lb Heart Rate 68 /min BP Systolic 136 mmHg BP Diastolic 64 mmHg Respiratory Rate 18 /min Height 65.5 inches 5'5.50" (11/2014) O2 % BldC Oximetry 99 % BMI (Body Mass Index) 24.4 kg/m2 12/18/2013 Weight 160.00 lb Heart Rate 78 /min BP Systolic Sitting 120 mmHg BP Diastolic Sitting 75 mmHg Respiratory Rate 12 /min Height 65.5 inches 5'5.50" BMI (Body Mass Index) 26.2 kg/m2 09/20/2013 BP Systolic 136 mmHg BP Diastolic 78 mmHg 09/20/2013 Weight 161.00 lb Heart Rate 88 /min BP Systolic 134 mmHg BP Diastolic 74 mmHg Respiratory Rate 18 /min Height 64.75 inches 5'4.75" (09/2013) 06/19/2013 Weight 161.00 lb Heart Rate 72 /min BP Systolic Sitting 110 mmHg BP Diastolic Sitting 75 mmHg Respiratory Rate 12 /min Height 65.5 inches 5'5.50" BMI (Body Mass Index) 26.4 kg/m2 12/05/2012 Weight 160.00 lb Heart Rate 64 /min BP Systolic Sitting 110 mmHg BP Diastolic Sitting 78 mmHg Respiratory Rate 12 /min Height 65.5 inches 5'5.50" BMI (Body Mass Index) 26.2 kg/m2 09/19/2012 Weight 156.00 lb Down 9 LBS Heart Rate 80 /min BP Systolic 140 mmHg BP Diastolic 90 mmHg Respiratory Rate 20 /min Height 65 inches 5'5" 06/06/2012 Weight 158.00 lb Heart Rate 78 /min BP Systolic Sitting 120 mmHg BP Diastolic Sitting 70 mmHg Respiratory Rate 12 /min Height 65.5 inches 5'5.50" BMI (Body Mass Index) 25.9 kg/m2 11/23/2011 Weight 167.00 lb Heart Rate 68 /min BP Systolic Sitting 128 mmHg BP Diastolic Sitting 72 mmHg Respiratory Rate 12 /min Height 65.5 inches 5'5.50" BMI (Body Mass Index) 27.4 kg/m2 11/10/2011 Weight 166.00 lb Heart Rate 78 /min BP Systolic Sitting 122 mmHg BP Diastolic Sitting 78 mmHg Respiratory Rate 12 /min Height 65.5 inches 5'5.50" BMI (Body Mass Index) 27.2 kg/m2 09/18/2011 Weight 165.00 lb Heart Rate 80 /min BP Systolic 124 mmHg BP Diastolic 72 mmHg Respiratory Rate 20 /min Height 65 inches 5'5" 12/10/2010 Body Temperature 99.1 F Weight 160.00 lb Heart Rate 94 /min BP Systolic 130 mmHg BP Diastolic 70 mmHg Height 65 inches 5'5" 11/10/2010 Weight 161.00 lb Heart Rate 68 /min BP Systolic 120 mmHg BP Diastolic 68 mmHg Respiratory Rate 12 /min Height 65.5 inches 5'5.50" BMI (Body Mass Index) 26.4 kg/m2 09/16/2010 Weight 160.00 lb Heart Rate 80 /min BP Systolic 150 mmHg BP Diastolic 60 mmHg 09/16/2010 BP Systolic 124 mmHg repeat/ph BP Diastolic 66 mmHg repeat/ph 10/28/2009 Weight 166.00 lb Heart Rate 80 /min BP Systolic 120 mmHg BP Diastolic 64 mmHg Respiratory Rate 12 /min 09/12/2009 Weight 164.00 lb Heart Rate 80 /min BP Systolic 160 mmHg BP Diastolic 82 mmHg 09/12/2009 BP Systolic 132 mmHg repeat/ph BP Diastolic 68 mmHg repeat/ph 04/29/2009 Weight 164.00 lb Heart Rate 73 /min BP Systolic 153 mmHg BP Diastolic 87 mmHg Respiratory Rate 12 /min 10/15/2008 Weight 161.00 lb Heart Rate 80 /min BP Systolic 128 mmHg BP Diastolic 72 mmHg Respiratory Rate 12 /min 09/10/2008 Weight 159.00 lb Heart Rate 82 /min BP Systolic 112 mmHg BP Diastolic 72 mmHg 08/30/2008 Weight 162.00 lb BP Systolic 140 mmHg BP Diastolic 74 mmHg Height 65.25 inches 5'5.25" 08/29/2008 Weight 162.25 lb Heart Rate 74 /min BP Systolic 132 mmHg BP Diastolic 80 mmHg Respiratory Rate 18 /min Height 65.25 inches 5'5.25" 07/19/2008 Weight 160.00 lb Heart Rate 80 /min BP Systolic 128 mmHg BP Diastolic 86 mmHg Respiratory Rate 12 /min 03/30/2008 Weight 160.00 lb Heart Rate 72 /min BP Systolic 102 mmHg BP Diastolic 62 mmHg Respiratory Rate 12 /min 10/10/2007 Weight 161.00 lb Heart Rate 68 /min BP Systolic 130 mmHg BP Diastolic 70 mmHg Respiratory Rate 12 /min 09/26/2007 Weight 164.00 lb Heart Rate 84 /min BP Systolic 126 mmHg BP Diastolic 78 mmHg Respiratory Rate 12 /min 09/08/2007 Weight 166.00 lb Heart Rate 72 /min BP Systolic 128 mmHg BP Diastolic 70 mmHg Respiratory Rate 18 /min Height 65.25 inches 5'5.25" 04/27/2007 Weight 159.00 lb Heart Rate 79 /min BP Systolic 130 mmHg BP Diastolic 70 mmHg Respiratory Rate 18 /min Height 65.25 inches 5'5.25" 03/28/2007 Weight 159.00 lb Heart Rate 78 /min BP Systolic Sitting 124 mmHg BP Diastolic Sitting 68 mmHg Respiratory Rate 12 /min 02/18/2007 Weight 162.00 lb BP Systolic 110 mmHg BP Diastolic 60 mmHg Height 65.25 inches 5'5.25" 09/02/2006 Weight 160.00 lb Heart Rate 84 /min BP Systolic Sitting 126 mmHg BP Diastolic Sitting 68 mmHg Respiratory Rate 12 /min 02/23/2006 Heart Rate 62 /min BP Systolic Sitting 140 mmHg BP Diastolic Sitting 70 mmHg Respiratory Rate 12 /min 08/26/2005 Heart Rate 72 /min BP Systolic Sitting 128 mmHg BP Diastolic Sitting 70 mmHg Respiratory Rate 12 /min 02/23/2005 Heart Rate 80 /min BP Systolic Sitting 118 mmHg BP Diastolic Sitting 70 mmHg Respiratory Rate 12 /min 11/20/2004 Heart Rate 84 /min BP Systolic Sitting 138 mmHg BP Diastolic Sitting 72 mmHg Respiratory Rate 12 /min 11/06/2004 Heart Rate 80 /min BP Systolic Sitting 128 mmHg BP Diastolic Sitting 70 mmHg Respiratory Rate 12 /min Results Test Date Test Result H/L Range Note Laboratory test finding 04/02/2017 Lipase 186 U/L 73-393 1 CK 81 U/L 26-192 1 Troponin-I < 0.015 ng/mL 1, 2 Laboratory test finding 04/02/2017 Troponin-I < 0.015 ng/mL 1, 3 Comprehensive Metabolic Panel 04/02/2017 Glucose 104 mg/dL 74-106 1 BUN 24 mg/dL High 7-18 1 Creatinine 0.8 mg/dL 0.6-1.3 1 Glom Filtration Rate, Estimate >60 mL/min >60 1 If >60 mL/min >60 1, 4 BUN/Creat 30.0 ratio 1 Sodium 142 mmol/L 136-145 1 Potassium 4.2 mmol/L 3.5-5.1 1 Chloride 108 mmol/L High 98-107 1 Carbon Dioxide 29 mmol/L 21-32 1 Anion Gap 5 mEq/L Low 8-16 1 Calcium 8.9 mg/dL 8.5-10.1 1 Total Protein 7.0 g/dL 6.4-8.2 1 Albumin 3.8 g/dL 3.4-5.0 1 Globulin 3.2 g/dL 1.9-4.3 1 Alb/Glob 1.2 ratio 1 Bilirubin,Total 0.3 mg/dL 0.2-1.0 1 Sgot/Ast 13 U/L Low 15-37 1, 5 SGPT/Alt 26 U/L 12-78 1 Alkaline Phosphatase 73 U/L 45-117 1 CBS W/Automated Diff 04/02/2017 White Blood Count 6.2 K/uL 3.1-10.7 1 Red Blood Count 4.26 M/uL 3.90-5.40 1 Hemoglobin 13.3 gm/dL 11.6-15.8 1 Hematocrit 39.4 % 36.0-46.1 1 Mean Cell Volume 92.5 fl 80.9-99.0 1 Mean Corpuscular HGB 31.2 pg 25.9-32.7 1 Mean Corpuscular HGB Conc 33.8 g/dL 30.8-34.3 1 Platelet Count 307 K/uL 150-400 1 Red Cell Distri Width SD 43.2 fl 3-47 1 Red Cell Distri Width %CV 13.1 % 11.7-14.4 1 Mean Platelet Volume 10.2 fL 8.9-12.4 1 Neut% 60.0 % 40.4-72.8 1 Lymph % 28.0 % 20.0-42.0 1 [place] % 10.6 % 4.3-13.2 1 Eo% 1.1 % 0.0-6.6 1 Bas% 0.3 % 0.0-1.1 1 Neut# 3.74 K/uL 1.8-7.0 1 Lymph # 1.75 K/uL 1.0-4.0 1 [place] # 0.66 K/uL 0.3-0.9 1 Eos # 0.07 K/uL 0.0-0.5 1 Baso # 0.02 K/uL 0.0-0.1 1 Carboxyhemoglobin 07/07/2016 Fio2 100 % 6 HGB O2 Sat 91.1 % Low 91.9-98.5 6 Carboxyhemoglobin 15.4 % High 0.0-1.5 6 Methemoglobin 0.30 % High 0.00-0.24 6 Lipid Treatment 06/01/2016 Cholesterol 240 mg/dL High 50-199 7 Triglycerides 195 mg/dL 30-200 7 HDL 73 mg/dL 35-85 7, 8 Chol/ HDL Ratio 3.3 ratio Low 3.7-5.6 7 VLDL 39 mg/dL High 2-29 7 LDL (Calc) 128 mg/dL High 20-99 7, 9 Alt 24 U/L 3-42 7 Ast 24 U/L 8-42 7 CBC With Auto Diff 06/01/2016 WBC 8.9 K/uL 4.1-11.0 7 RBC 4.46 M/uL 4.00-5.40 7 Hemoglobin 13.9 gm/dL 12.0-16.0 7 Hematocrit 40.9 % 36.0-47.0 7 MCV 91.8 fL 80.0-97.0 7 MCH 31.1 pg 27.0-32.0 7 MCHC 33.9 g/dL 32.0-36.0 7 RDW 13.4 % 11.5-14.5 7 PLT Count 336 K/ul 140-400 7 Neutrophil 72.8 % 35.0-75.0 7 Lymphocyte 17.9 % 16.0-52.0 7 Monocyte 8.4 % 2.0-10.0 7 Eosinophil 0.4 % 0.0-5.0 7 Basophil 0.5 % 0.0-4.0 7 Abs Neutrophils 6.5 K/uL 2.1-8.0 7 Abs Lymphocytes 1.6 K/uL 0.8-5.5 7 Abs Monocytes 0.7 K/uL 0.1-1.0 7 Abs Eosinophils 0.0 K/uL 0.0-0.5 7 Abs Basophils 0.0 K/uL 0.0-0.3 7 Basic (BMP) 06/01/2016 Sodium 140 mmol/L 134-142 7 Potassium 4.3 mmol/L 3.5-5.2 7 Chloride 100 mmol/L 97-109 7 Carbon Dioxide 26 mmol/L 24-34 7 Glucose 84 mg/dL 70-105 7 BUN 13 mg/dL 6-26 7 Creatinine 0.6 mg/dL 0.5-1.4 7 Calcium 9.3 mg/dL 8.5-10.2 7 Anion Gap 18 mmol/L High 6-14 7 Non Mariangel Egfr >60 >60 7, 10 Mariangel Egfr >60 >60 7, 11 Laboratory test finding 06/01/2016 TSH 1.22 uIU/mL 0.35-4.94 7 Lipid Treatment 02/07/2015 Cholesterol 208 mg/dL High 50-199 12 Triglycerides 91 mg/dL 30-200 12 HDL 66 mg/dL 35-85 12, 13 Chol/ HDL Ratio 3.2 ratio Low 3.7-5.6 12 VLDL 18 mg/dL 2-29 12 LDL (Calc) 124 mg/dL High 20-99 12, 14 Alt 22 U/L 3-42 12 Ast 15 U/L 8-42 12 Basic (BMP) 11/29/2014 Sodium 140 mmol/L 134-142 Potassium 4.6 mmol/L 3.5-5.2 Chloride 105 mmol/L 97-109 Carbon Dioxide 28 mmol/L 24-34 Glucose 92 mg/dL 70-105 BUN 22 mg/dL 6-26 Creatinine 0.7 mg/dL 0.5-1.4 Calcium 9.2 mg/dL 8.5-10.2 Anion Gap 12 mmol/L 6-14 Non Mariangel Egfr >60 >60 15 Mariangel Egfr >60 >60 16 Laboratory test finding 11/29/2014 Vit D,25 Hydroxy 75 ng/mL 31-100 CBC With Auto Diff 11/29/2014 WBC 5.1 K/uL 4.1-11.0 RBC 4.28 M/uL 4.00-5.40 Hemoglobin 13.0 gm/dL 12.0-16.0 Hematocrit 39.8 % 36.0-47.0 MCV 92.9 fL 80.0-97.0 MCH 30.4 pg 27.0-32.0 MCHC 32.7 g/dL 32.0-36.0 RDW 14.0 % 11.5-14.5 PLT Count 294 K/ul 140-400 Neutrophil 62.2 % 35.0-75.0 Lymphocyte 26.6 % 16.0-52.0 Monocyte 8.1 % 2.0-10.0 Eosinophil 2.5 % 0.0-5.0 Basophil 0.6 % 0.0-4.0 Abs Neutrophils 3.2 K/uL 2.1-8.0 Abs Lymphocytes 1.4 K/uL 0.8-5.5 Abmon 0.4 K/uL 0.1-1.0 Abs Eosinophils 0.1 K/uL 0.0-0.5 Abs Basophils 0.0 K/uL 0.0-0.3 Lipid Treatment 11/29/2014 Cholesterol 217 mg/dL High 50-199 Triglycerides 120 mg/dL 30-200 HDL 67 mg/dL 35-85 17 Chol/ HDL Ratio 3.2 ratio Low 3.7-5.6 VLDL 24 mg/dL 2-29 LDL (Calc) 126 mg/dL High 20-99 18 Alt 16 U/L 3-42 Ast 14 U/L 8-42 Laboratory test finding 11/29/2014 TSH 2.72 uIU/mL 0.34-5.60 Laboratory test finding 09/26/2013 Alb/Glob 1.2 ratio Albumin 3.8 g/dL 3.5-5.0 Alkaline Phosphatase 81 U/L 50-136 Anion Gap 10 mEq/L 8-16 BUN 18 mg/dL 5-23 BUN/Creat 22.5 ratio Bas% 0.8 % 0.0-1.1 Baso # 0.04 K/uL 0.0-0.1 Bilirubin,Total 0.3 mg/dL 0.2-1.2 Calcium 9.3 mg/dL 8.5-10.1 Carbon Dioxide 29 mEq/L 18-29 Chloride 106 mmol/L 98-107 Creatinine 0.8 mg/dL 0.5-1.4 Eo% 3.1 % 0.0-6.6 Eos # 0.16 K/uL 0.0-0.5 Globulin 3.3 g/dL 1.9-4.3 Glom Filtration Rate, Estimate >60 mL/min >60 Glucose 101 mg/dL 76-115 Hematocrit 41.7 % 36.0-46.1 Hemoglobin 13.6 gm/dL 11.6-15.8 If >60 mL/min >60 19 Lymph # 1.66 K/uL 0.8-3.4 Lymph % 32.4 % 17.0-46.1 Mean Cell Volume 92.7 fl 80.9-99.0 Mean Corpuscular HGB 30.2 pg 25.9-32.7 Mean Corpuscular HGB Conc 32.6 g/dL 30.8-34.3 Mean Platelet Volume 10.6 fL 8.9-12.4 [place] # 0.51 K/uL 0.3-0.9 [place] % 10.0 % 4.3-13.2 Neut# 2.75 K/uL 1.0-7.0 Neut% 53.7 % 40.4-72.8 Platelet Count 334 K/uL 155-360 Potassium 4.3 mmol/L 3.5-5.1 Red Blood Count 4.50 M/uL 3.90-5.40 Red Cell Distri Width %CV 13.1 % 11.7-14.4 Red Cell Distri Width SD 44.0 fl 3-47 SGPT/Alt 23 U/L Low 30-65 Sgot/Ast 15 U/L Low 16-40 Sodium 141 mmol/L 136-145 Total Protein 7.1 g/dL 6.3-8.0 Vitamin D,25-Hydroxy 40.5 ng/mL 30.0-100.0 20 White Blood Count 5.1 K/uL 3.1-10.7 LDL Cholesterol Profile 09/26/2013 Cholesterol 215 mg/dL High 120-200 HDL Cholesterol 81 mg/dL 29-83 LDL-Cholesterol 115 mg/dL 62-185 Triglycerides 96 mg/dL 16-231 Laboratory test finding 09/05/2013 Calcium 9.0 mg/dL 8.5-10.1 Creatinine 0.8 mg/dL 0.5-1.4 Hepatic Function Panel LFT 09/19/2012 Albumin 4.0 g/dL 3.5-5.0 Alk. Phos. 81.0 U/L 30.0-126.0 Alt 25.0 U/L 9.0-52.0 Ast 20.0 U/L 14.0-36.0 Total Bilirubin 0.5 mg/dL 0.2-1.3 Total Protein 6.8 g/dL 6.3-8.2 Laboratory test finding 09/19/2012 % Baso. 1.4 % 0.0-2.0 % Eos. 2.5 % 0.0-4.0 % Lymph 35 % 20-44 % [place] 7.3 % 2.0-10.0 % Chet 54 % 50-70 Absolute Baso. 0.1 K/ul 0.0-0.3 Absolute Eos. 0.2 K/ul 0.0-0.5 Absolute Lymph. 2.7 K/ul 0.8-4.8 Absolute [place]. 0.6 K/ul 0.1-1.0 Absolute Chet. 4.16 K/ul 2.05-7.63 BUN 19.0 mg/dL High 7.0-18.0 BUN/Creat Ratio 23.8 ratio High 12.0-20.0 Calcium 9.2 mg/dL 8.7-10.5 Chloride 102.0 mmol/L 98.0-107.0 Co2 27.0 mmol/L 22.0-30.0 Creatinine-Serum 0.8 mg/dL 0.7-1.2 Glucose 88.0 mg/dL 75.0-110.0 HCT 43.6 % 37.0-51.0 HGB 13.6 Gm/dl 12.0-16.0 MCH 28.8 pg 26.0-32.0 MCHC 31.2 g/dL 31.0-36.0 MCV 92.4 Fl 80.0-97.0 MPV 7.2 fL 6.0-10.0 PLT 415 K/ul 140-440 Potasium 4.0 mmol/L 3.6-5.0 RBC 4.7 M/ul 4.2-6.3 RDW 11.9 % 11.5-14.5 Sodium 141.0 mmil/L 137.0-145.0 TSH 1.74 uIU/ml 0.50-6.00 WBC 7.7 K/ul 4.1-10.9 eGFR 74.9 BMP (Basic) 11/10/2011 Sodium 142 mmol/L (136-145) Potassium 4.5 mmol/L (3.6-5.2) Chloride 103 mmol/L (100-108) Co2 30 mmol/L (22-31) Anion Gap 9 mmol/L (7-16) Urea Nitrogen 15 mg/dL (7-24) Creatinine 0.8 mg/dL (0.6-1.0) BUN/Creat Ratio 18.8 RATIO (10.0-20.0) Glucose 88 mg/dL (70-99) Calcium 9.9 mg/dL (8.4-10.2) GFR 75 ML/MIN/1.73M2 (>59) GFR ( Amer) >90 ML/MIN/1.73M2 (>59) GFR Interpretation <SEE NOTE> 21 Laboratory test finding 09/18/2011 Absolute Basophils 0.065 K/ul 0.0-0.3 Absolute Eosinophils 0.091 K/ul 0.0-0.5 Absolute Lymphocytes 1.70 K/ul 0.8-4.8 Absolute Monocytes 0.450 K/ul 0.1-1.0 Absolute Neutrophils 4.30 K/ul 2.05-7.63 Anion Gap 15 mmol/L 10-20 BUN 18 mg/dL 7-18 BUN/CR Ratio 23.6 Ratio High 12-20 Basophil 1.0 % 0-2 Calcium 9.5 mg/dL 8.7-10.5 Carbon Dioxide 28 mmol/L 22-30 Chloride 99 mmol/L 98-107 Creatinine, Serum 0.8 mg/dL 0.7-1.2 Eosinophil 1.4 % 0-4 Glucose 87 mg/dL 65-105 Hematocrit 40.5 % 37.0-51.0 Hemoglobin 12.9 GM/dl 12.0-16.0 Lymphocytes 25.7 % 20-44 MCH 29.3 pg 26.0-32.0 MCHC 32.0 g/dL 31.0-36.0 MCV 92 FL 80-97 Monocytes 6.8 % 2-10.0 Neutrophils 65.2 % 50-70 Platelet Count 346 K/ul 140-440 Potassium 4.2 mmol/L 3.6-5.0 RBC 4.42 M/ul 4.2-6.3 RDW 11.9 % 11.5-14.5 Sodium 138 mmol/L 137-145 TSH 2.299 uIU/ml 0.50-6.00 Vitamin B12 833 pg/mL 311-1180 22 WBC 6.6 K/ul 4.1-10.9 Lipid Panel 09/18/2011 Chol/HDL Ratio 3.2 23 Cholesterol 240 mg/dL High 50-199 HDL Cholesterol 74 mg/dL 29-86 LDL 117 mg/dL 20-129 Triglycerides 245 mg/dL 30-249 VLDL Cholesterol 49 mg/dL Laboratory test finding 09/16/2010 Absolute Basophils 0.081 K/ul 0.0-0.3 24 Absolute Eosinophils 0.108 K/ul 0.0-0.5 24 Absolute Lymphocytes 2.15 K/ul 0.8-4.8 24 Absolute Monocytes 0.534 K/ul 0.1-1.0 24 Absolute Neutrophils 3.81 K/ul 2.05-7.63 24 Alt 22 U/L 9-52 24 Anion Gap 13 mmol/L 10-20 24 Ast 21 U/L 14-36 24 BUN 20 mg/dL High 7-18 24 BUN/CR Ratio 26.3 Ratio High 12-20 24 Basophil 1.2 % 0-2 24 Calcium 9.6 mg/dL 8.7-10.5 24 Carbon Dioxide 32 mmol/L High 22-30 24 Chloride 101 mmol/L 98-107 24 Creatinine, Serum 0.8 mg/dL 0.7-1.2 24 Eosinophil 1.6 % 0-4 24 Glucose 92 mg/dL 65-105 24 Hematocrit 43.6 % 37.0-51.0 24 Hemoglobin 13.7 GM/dl 12.0-16.0 24 Lymphocytes 32.2 % 20-44 24 MCH 30.1 pg 26.0-32.0 24 MCHC 31.4 g/dL 31.0-36.0 24 MCV 96 FL 80-97 24 Monocytes 8.0 % 2-10.0 24 Neutrophils 57.0 % 50-70 24 Platelet Count 335 K/ul 140-440 24 Potassium 3.9 mmol/L 3.6-5.0 24 RBC 4.55 M/ul 4.2-6.3 24 RDW 13.3 % 11.5-14.5 24 Sodium 142 mmol/L 137-145 24 Vitamin D,25-Hydroxy 33.5 ng/mL 32.0-100.0 24, 25 WBC 6.7 K/ul 4.1-10.9 24 Lipid Panel 09/16/2010 Chol/HDL Ratio 3.1 24, 26 Cholesterol 229 mg/dL High 50-199 24 HDL Cholesterol 72 mg/dL 29-86 24 LDL 107 mg/dL 20-129 24 Triglycerides 251 mg/dL High 30-249 24 VLDL Cholesterol 50 mg/dL 24 Laboratory test finding 10/28/2009 Vitamin D, 25 Hydroxy 46 ng/mL 31-100 27 Laboratory test finding 09/12/2009 Absolute Basophils 0.094 K/ul 0.0-0.3 28 Absolute Eosinophils 0.120 K/ul 0.0-0.5 28 Absolute Lymphocytes 2.32 K/ul 0.8-4.8 28 Absolute Monocytes 0.602 K/ul 0.1-1.0 28 Absolute Neutrophils 5.07 K/ul 2.05-7.63 28 Anion Gap 15 mmol/L 10-20 28 BUN 17 mg/dL 7-18 28 BUN/CR Ratio 22.3 Ratio High 12-20 28 Basophil 1.1 % 0-2 28 Calcium 9.5 mg/dL 8.7-10.5 28 Carbon Dioxide 31 mmol/L High 22-30 28 Chloride 99 mmol/L 98-107 28 Creatinine, Serum 0.8 mg/dL 0.7-1.2 28 Eosinophil 1.5 % 0-4 28 Glucose 89 mg/dL 65-105 28 Hematocrit 41.0 % 37.0-51.0 28 Hemoglobin 13.6 GM/dl 12.0-16.0 28 Lymphocytes 28.3 % 20-44 28 MCH 30.1 pg 26.0-32.0 28 MCHC 33.1 g/dL 31.0-36.0 28 MCV 91 FL 80-97 28 Monocytes 7.3 % 2-10.0 28 Neutrophils 61.8 % 50-70 28 Platelet Count 393 K/ul 140-440 28 Potassium 4.4 mmol/L 3.6-5.0 28 RBC 4.51 M/ul 4.2-6.3 28 RDW 11.9 % 11.5-14.5 28 Sodium 141 mmol/L 137-145 28 TSH 2.271 uIU/ml 0.50-6.00 28 WBC 8.2 K/ul 4.1-10.9 28 Lipid Panel 09/12/2009 Chol/HDL Ratio 3.3 28, 29 Cholesterol 268 mg/dL High 50-199 28 HDL Cholesterol 79 mg/dL 29-86 28 LDL 143 mg/dL High 20-129 28 Triglycerides 228 mg/dL 30-249 28 VLDL Cholesterol 46 mg/dL 28 Laboratory test finding 08/29/2008 Absolute Basophils 0.03 K/ul 0.0-0.3 30 Absolute Eosinophils 0.12 K/ul 0.0-0.5 30 Absolute Lymphocytes 1.35 K/ul 0.8-4.8 30 Absolute Monocytes 0.41 K/ul 0.1-1.0 30 Absolute Neutrophils 3.50 K/ul 2.05-7.63 30 Anion Gap 14 mmol/L 10-20 30 BUN 15 mg/dL 7-18 30 BUN/CR Ratio 22.2 Ratio High 12-20 30 Basophil 0.5 % 0-2 30 Calcium 9.0 mg/dL 8.7-10.5 30 Carbon Dioxide 29 mmol/L 22-30 30 Chloride 105 mmol/L 98-107 30 Creatinine, Serum 0.7 mg/dL 0.7-1.2 30 Eosinophil 2.2 % 0-4 30 Glucose 74 mg/dL 65-105 30 Hematocrit 39.3 % 37.0-51.0 30 Hemoglobin 12.9 GM/dl 12.0-16.0 30 Lymphocytes 25.0 % 20-44 30 MCH 28.8 pg 26.0-32.0 30 MCHC 32.7 g/dL 31.0-36.0 30 MCV 88 FL 80-97 30 Monocytes 7.5 % 2-10.0 30 Neutrophils 64.8 % 50-70 30 Platelet Count 342 K/ul 140-440 30 Potassium 4.3 mmol/L 3.6-5.0 30 RBC 4.46 M/ul 4.2-6.3 30 RDW 12.0 % 11.5-14.5 30 Sodium 143 mmol/L 137-145 30 TSH 2.654 uIU/ml 0.50-6.00 30 WBC 5.4 K/ul 4.1-10.9 30 Lipid Panel 08/29/2008 Chol/HDL Ratio 3.5 30, 31 Cholesterol 230 mg/dL High 50-199 30 HDL Cholesterol 65 mg/dL 29-86 30 LDL 137 mg/dL High 20-129 30 Triglycerides 141 mg/dL 30-249 30 VLDL Cholesterol 28 mg/dL 30 Laboratory test finding 02/23/2007 Glucose 100 mg/dL 65-105 32 TSH 2.319 uIU/ml 0.50-6.00 32 Lipid Panel 02/23/2007 Chol/HDL Ratio 3.8 32, 33 Cholesterol 226 mg/dL High 50-199 32 HDL Cholesterol 58 mg/dL 29-86 32 LDL 136 mg/dL High 20-129 32 Triglycerides 160 mg/dL 30-249 32 VLDL Cholesterol 32 mg/dL 32 1 HAD FEELING STARTING IN STOMACH,UP TO HEAD,PAIN 2 0.0 - 0.045 ng/mL: Normal 0.046 - 0.5 ng/mL: Suggestive 0.6 - 1.5 ng/mL: Consistent 3 0.0 - 0.045 ng/mL: Normal 0.046 - 0.5 ng/mL: Suggestive 0.6 - 1.5 ng/mL: Consistent 4 Note: Persistent reduction for 3 months or more in an eGFR <60 mL/min/1.73 m2 defines CKD. Patients with eGFR values >/=60 mL/min/1.73 m2 may also have CKD if evidence of persistent proteinuria is present. The original MDRD equation for estimated GFR is not valid for patients less than 18 years of age. Additional information may be found at www.kdoqi.org. 5 Values below the stated reference ranges of AST and ALT can be seen in normal populations. Clinical correlation is suggested. 6 R/O CO2 POISONING [address] Castillo to be done with next labs as outpatient- please send any other labs don 8 Per NCEP ATP III Guidelines: Results lower than 40 mg/dL are suggestive of increased risk for coronary artery disease. Results > or=to 60 mg/dL are considered a negative risk factor. 9 Per NCEP ATP III Guidelines: Normal Population <130 Patients with medical conditions: CHD/DM Optimal: <100 Borderline high: 130-159 High: 160-189 Very high: >189 10 Concerning GFR Guidelines: Normal function or mild renal disease, if clinically at risk: >/=60 mL/min Moderately decreased: 30-59 Severely decreased: 15-29 Renal failure: <15 Glomerular Filtration Rate (GFR) is estimated based on the MDRD equation, which assumes a steady state for creatinine as recommended by the National Kidney Disease Education Program in conjunction with the National Institutes of Health and the National Kidney Foundation. Clinical conditions in which it may be necessary to measure GFR by using clearance methods include extremes of age and body size, severe malnutrition or obesity, diseases of skeletal muscle, paraplegia or quadriplegia, vegetarian diet, rapidly changing kidney function, and calculation of the dose of potentially toxic drugs that are excreted by the kidneys. 11 Concerning GFR Guidelines for Americans: Normal function or mild renal disease, if clinically at risk: >/=60 mL/min Moderately decreased: 30-59 Severely decreased: 15-29 Renal failure: <15 12 Fastin hours 13 Per NCEP ATP III Guidelines: Results lower than 40 mg/dL are suggestive of increased risk for coronary artery disease. Results > or=to 60 mg/dL are considered a negative risk factor. 14 Per NCEP ATP III Guidelines: Normal Population <130 Patients with medical conditions: CHD/DM Optimal: <100 Borderline high: 130-159 High: 160-189 Very high: >189 15 Concerning GFR Guidelines: Normal function or mild renal disease, if clinically at risk: >/=60 mL/min Moderately decreased: 30-59 Severely decreased: 15-29 Renal failure: <15 Glomerular Filtration Rate (GFR) is estimated based on the MDRD equation, which assumes a steady state for creatinine as recommended by the National Kidney Disease Education Program in conjunction with the National Institutes of Health and the National Kidney Foundation. Clinical conditions in which it may be necessary to measure GFR by using clearance methods include extremes of age and body size, severe malnutrition or obesity, diseases of skeletal muscle, paraplegia or quadriplegia, vegetarian diet, rapidly changing kidney function, and calculation of the dose of potentially toxic drugs that are excreted by the kidneys. 16 Concerning GFR Guidelines for Americans: Normal function or mild renal disease, if clinically at risk: >/=60 mL/min Moderately decreased: 30-59 Severely decreased: 15-29 Renal failure: <15 17 Per NCEP ATP III Guidelines: Results lower than 40 mg/dL are suggestive of increased risk for coronary artery disease. Results > or=to 60 mg/dL are considered a negative risk factor. 18 Per NCEP ATP III Guidelines: Normal Population <130 Patients with medical conditions: CHD/DM Optimal: <100 Borderline high: 130-159 High: 160-189 Very high: >189 19 Note: Persistent reduction for 3 months or more in an eGFR <60 mL/min/1.73 m2 defines CKD. Patients with eGFR values >/=60 mL/min/1.73 m2 may also have CKD if evidence of persistent proteinuria is present. The original MDRD equation for estimated GFR is not valid for patients less than 18 years of age. Additional information may be found at www.kdoqi.org. 20 Vitamin D deficiency has been defined by the [place] of Medicine and an Endocrine Society practice guideline as a level of serum 25-OH vitamin D less than 20 ng/mL (1,2). The Endocrine Society went on to further define vitamin D insufficiency as a level between 21 and 29 ng/mL (2). 1. IOM ([place] of Medicine). 2010. Dietary reference intakes for calcium and D. [place]: The National Academies Press. 2. Contreras MF, Anthony DEL VALLE, James MANZO, et al. Evaluation, treatment, and prevention of vitamin D deficiency: an Endocrine Society clinical practice guideline. JCEM. 2010; 96(7):1911-30. Performed at: [facility] [id number] [place] Operator: Annemarie Rivera MD, Phone: [phone] 21 NORMAL KIDNEY FUNCTION OR MILD DISEASE - GFR >OR=60 CHRONIC KIDNEY DISEASE - GFR 15 - 59 RENAL FAILURE - GFR <15 Est. GFR calculation based on the MDRD study equation, which assumes a steady state for creatinine. Est. GFR should not be used for medication dosing. 22 QUERY: Is the Patient Fasting? Y 23 Normal Range: Male: <4.98 Female: <4.[address] swann In Edmund Swann MD 25 Recent studies consider the lower limit of 32.0 ng/mL to be a threshold for optimal health. Ladarius HERNANDEZ. J Nutr. 2005 Sep;135(2):317-22. Performed at: [facility] [id number] [place] Operator: Howard Bello MD, Phone: [phone] 26 Normal Range: Male: <4.98 Female: <4.45 27 This sample is drawn by:[facility] 28 FASTING 29 Normal Range: Male: <4.98 Female: <4.45 30 FASTING schedule 1 week prior to next visit 31 Normal Range: Male: <4.98 Female: <4.45 32 schedule routine next few weeks 33 Normal Range: Male: <4.98 Female: <4.45 Procedures Date CPT Code Description Status Comment 07/28/2017 Bone Mineral Density Test Completed 05/17/2015 13321 X-Ray Knee Complete Completed W/Obliques & Tunnel And/Or Standing Views 05/17/2015 09425 X-Ray Knee Ap & Lateral Completed 01/14/2015 Bone Mineral Density Test Completed 11/29/2014 52082 Measure Blood Oxygen Level Completed Single Determination 02/23/2012 Colonoscopy Completed Document: 02/23/12 - Colonoscopy 08/31/2011 Colonoscopy Completed Repeat in 2021 Encounters Type Date Location Provider CPT E/M Dx Office Visit 12/16/2017 11:15[place] [address] Z00.00 G35 E78.2 K21.9 F41.9 G51.8 M81.0 H93.13 I83.899 Office Visit 01/21/2017 4:00[place] [address] S06.890A M54.5 S23.41xA W10.9xxA Office Visit 06/01/2016 1:30[place] [address] F41.9 G35 G51.8 E78.2 R63.4 Office Visit 12/12/2015 2:00p Hair Harris DO G0439 Z00.00 G35 M81.0 G51.8 H93.13 I83.899 E78.2 Office Visit 05/17/2015 1:45[place] [address] M25.561 Office Visit 11/29/2014 9:00[place] [address] V70.0 340 733.01 272.2 351.8 388.30 454.8 465.9 Office Visit 12/18/2013 11:30a MD Roxy Anderson Sheri, 63221 340 RPA-C 350.2 V58.69 Office Visit 06/19/2013 11:30a MD Roxy Anderson Sheri, 49661 340 RPA-C 350.2 V58.69 Office Visit 12/05/2012 10:30a MD Roxy Anderson Sheri, 32613 340 RPA-C 350.2 V58.69 Office Visit 06/06/2012 9:45a MD Roxy Anderson Sheri, 14843 340 RPA-C 350.2 Office Visit 11/23/2011 11:00a MD Roxy Anderson Sheri, 66711 340 RPA-C 782.0 350.2 388.30 Office Visit 11/10/2011 10:45a MD Roxy Anderson Sheri, 74204 340 RPA-C 782.0 350.2 388.30 Office Visit 11/10/2010 11:00a MD Roxy Anderson Sheri, 08446 340 RPA-C 350.2 Office Visit 10/28/2009 11:00a MD Roxy Anderson Sheri, 64888 340 RPA-C 350.2 268.9 Office Visit 04/29/2009 10:00kimberlyn Zurita/ Jessica Bryant, RPA-C 06795 340 350.2 Office Visit 10/15/2008 1:30p MD Roxy Anderson Sheri, 44265 340 RPA-C 350.2 Office Visit 07/19/2008 11:00a MD Roxy Anderson Sheri, 57884 340 RPA-C 350.2 Office Visit 06/21/2008 3:00p MD Roxy Anderson Sheri, 94670 340 RPA-C 350.2 Office Visit 03/30/2008 10:45a MD Roxy Anderson Sheri, 51876 340 RPA-C 350.2 Office Visit 10/10/2007 12:00p MD Roxy Anderson Sheri, 12325 340 RPA-C 350.2 388.30 723.8 Office Visit 09/26/2007 11:00a MD Roxy Anderson Sheri, 30998 340 RPA-C 350.2 388.30 723.1 Office Visit 03/28/2007 10:15a MD Roxy Anderson Sheri, RPA- C 93429 Office Visit 09/02/2006 1:30p MD Roxy Anderson Sheri, RPA- C 24041 Plan of Care Future Appointment(s):12/21/2018 10:30 am - Hair Castillo, at [facility]06/01/2018 - Megan Domingo, PAS32.502D Unsp fracture of LEFT pubis, subs for fx w routn healComments:Doing wellContinue tylenol/ibuprofenContinue with PTCall with worsening painFollow up:PrnK21.9 Gastro-esophageal reflux disease without esophagitisComments:D/c omeprazole Can try H2 mumtaz prn for refluxCall with worsening crwejhhaR41.00xA Age-rel osteopor w current path fracture, unsp site, initComments:With osteoporisis, will d/c omeprazoleContinue prolia
[2018-06-13 14:49] VITALS: BP 140/59
--- NOTE | 2018-06-13 15:12 | ED ---
Lower Extremity - HPI Summary HPI Summary: 77 yr old female with old pelvis fx. She fell on May 20, has pelvic fracture by xray report, was sent to [facility] and admitted over that weekend, and had PT consult. Discharged to home, and doing very well with her walker. She is weight bearing as tolerates. No new falls, and no pain today. She wanted to see orthopedic surgeon. She did not see on during her hospital visit. - History of Current Complaint Chief Complaint: UCLowerExtremity Stated Complaint: RE CHECK HIP INJ Time Seen by Provider: 06/13/18 14:52 Pain Intensity: 2 - Allergies/Home Medications Allergies/Adverse Reactions: Allergies Allergy/AdvReac Type Severity Reaction Status Date / Time No Known Allergies Allergy Verified 06/13/18 14:32 Home Medications: Home Medications Omeprazole CAP* [Prilosec CAP* 20 MG] 20 mg PO DAILY 06/13/18 [History Confirmed 06/13/18] PMH/Surg Hx/FS Hx/Imm Hx Endocrine/Hematology History: Denies: Hx Diabetes Cardiovascular History: Reports: Hx Hypercholesterolemia Denies: Hx Hypertension, Hx Pacemaker/ICD Respiratory History: Denies: Hx Asthma History: Denies: Hx Renal Disease Musculoskeletal History: Reports: Hx Fibromyalgia, Hx Osteoporosis Sensory History: Denies: Hx Contacts or Glasses, Hx Hearing Aid Opthamlomology History: Denies: Hx Contacts or Glasses Neurological History: Reports: Other Neuro Impairments/Disorders - Trigeminal Neuralgia Psychiatric History: Denies: Hx Panic Disorder - Surgical History Surgery Procedure, Year, and Place: T&A. TUBAL LIGATION. LAPCHOLE. ORIF RT WRIST Infectious Disease History: No Infectious Disease History: Denies: Traveled Outside the [place] in Last 30 Days - Family History Known Family History: Positive: Cardiac Disease - Social History Occupation: Retired Alcohol Use: None Substance Use Type: Reports: None Smoking Status (MU): Former Smoker Have You Smoked in the Last Year: No Review of Systems Constitutional: Negative Positive: Other - pelvis FX All Other Systems Reviewed And Are Negative: Yes Physical Exam Triage Information Reviewed: Yes Vital Signs On Initial Exam: Initial Vitals Temp Pulse Resp BP Pulse Ox 97.9 F 73 18 140/59 100 06/13/18 14:35 06/13/18 14:35 06/13/18 14:35 06/13/18 14:35 06/13/18 14:35 Vital Signs Reviewed: Yes Appearance: Positive: Well-Appearing, No Pain Distress Skin: Positive: Warm, Skin Color Reflects Adequate Perfusion Head/Face: Positive: Normal Head/Face Inspection Eyes: Positive: EOMI ENT: Positive: Normal ENT inspection Neck: Positive: Nontender Respiratory/Lung Sounds: Positive: Clear to Auscultation, Breath Sounds Present Cardiovascular: Positive: RRR. Negative: Murmur Abdomen Description: Positive: Nontender Musculoskeletal: Positive: Strength/ROM Intact, Other - no tenderness on palptaion pelvis Neurological: Positive: Sensory/Motor Intact, Alert, Oriented to Person Place, Time, CN Intact II-III Psychiatric: Positive: Normal - [place] Coma Scale Best Eye Response: 4 - Spontaneous Best Motor Response: 6 - Obeys Commands Best Verbal Response: 5 - Oriented Coma Scale Total: 15 Diagnostics - Vital Signs Vital Signs Temp Pulse Resp BP Pulse Ox 06/13/18 14:35 97.9 F 73 18 140/59 100 - Laboratory Lab Statement: Any lab studies that have been ordered have been reviewed, and results considered in the medical decision making process. Lower Extremity Course/Dx - Course Course Of Treatment: DW Dr Montalvo and he does not feel any new xrays should be taken today. He will follow up with patient in his office in the near future. Continue her current plan of care and follow up with him. - Diagnoses Provider Diagnoses: Nondisplaced fracture of pelvis Discharge - Sign-Out/Discharge Documenting (check all that apply): Patient Departure All imaging exams completed and their final reports reviewed: No Studies - Discharge Plan Condition: Good Disposition: HOME Patient Education Materials: Pelvic Fracture (ED), Hypertension (ED) Referrals: Hair Castillo DO [Primary Care Provider] - Yuri Montalvo MD [Medical Doctor] - 2 Days - Billing Disposition and Condition Condition: GOOD Disposition: Home
== END 2018-06-13 15:19 | disposition home or self-care (01) ==
LOC: UCCORT 13:52
DX: S32.9XXD Fracture of unspecified parts of lumbosacral spine and pelvis, subsequent encounter for fracture with routine healing (principal); E78.00 Pure hypercholesterolemia, unspecified; M79.7 Fibromyalgia; M81.0 Age-related osteoporosis without current pathological fracture; W19.XXXD Unspecified fall, subsequent encounter; Z87.891 Personal history of nicotine dependence
CPT/HCPCS: 99211; G0463